=== PATIENT | female | born 1995 | race African-American/Black ===

== ENCOUNTER → 2017-03-01 | Outpatient (CLI) | payer OTHER ==
[~2017-03-01] MED LIST: DAILY VITAMIN1 EAC2 PO; PROZAC20 MG PO; TOPROL XL25 MG PO; ZOLOFT50 MG PO
== END | disposition disaster alternative care site (69) ==
LOC: GAMB 20:23
DX: T65.91XA Toxic effect of unspecified substance, accidental (unintentional), initial encounter (principal); R40.0 Somnolence
CPT/HCPCS: A0425; A0427